=== PATIENT | male | born 1950 | race Caucasian/White ===

== ENCOUNTER 2019-11-14 10:40 | Inpatient (IN) ==
[2019-11-14 11:33] LABS: EOS# 0.03 X1000 (0.0-0.7); EOS% 0.4 % (0.0-10.0); HEMATOCRIT 34.7 % (42.0-52.0); HEMOGLOBIN 11.6 g/dL (14.0-18.0); LYMPH# 0.42 X1000 (1.2-3.4); LYMPH% 5.9 % (20.5-51.1); MCH 31.4 PG (27-31); MCHC 33.4 g/dL (33-37); MONO# 0.71 X1000 (0.11-0.59); MONO% 10.1 % (1.7-9.3); MPV 11.8 FL (7.4-10.4); NEUT% 83.6 % (42.2-75.2); PLT 219 X1000 (130-400); RBC 3.69 XMIL (4.7-6.1); RDW 13.9 % (11.5-14.5); WBC 7.06 X1000 (4.8-10.8)
[2019-11-14] MEDS ORDERED: MORPHINE IV ONE (11:38)
[2019-11-14] MEDS ORDERED: ZOFRAN IV ONE (11:38)
[2019-11-14] MEDS ORDERED: NS 1,000 ML IV ONE (11:38)
[2019-11-14 11:44] LABS: AGAP 14; ALB/GLOB RATIO 0.9; ALBUMIN 2.9 g/dL (3.5-5.0); ALKALINE PHOSPHATASE 106 U/L (32-122); BUN 25 mg/dL (8-22); CALCIUM 8.9 mg/dL (8.8-10.2); CHLORIDE 96 mmol/L (98-107); COSMO 270; CREATININE 0.8 mg/dL (0.7-1.2); ESTIMATED GFR > 60; GLUCOSE 123 mg/dL (70-104); GOT 32 U/L (10-34); GPT 89 U/L (10-44); LIPASE 167 U/L (13-60); POTASSIUM 3.8 mmol/L (3.5-5.1); SODIUM 132 mmol/L (136-145); TCO2 22 mmol/L (25-35); TOTAL BILIRUBIN 0.41 mg/dL (0.20-1.00)
--- NOTE | 2019-11-14 11:54 | Diag Imaging Result Doc PS360 ---
EXAM: CHEST-1 VIEW HISTORY: cough, on chemo TECHNIQUE: Single view COMPARISON: 10/15/2014 FINDINGS: The lungs are well expanded. The heart is not enlarged. The vessels are not distended. There are no infiltrates. No effusion identified. Right lung granuloma. IMPRESSION: No pneumonia Electronically signed by Josias Nails 11/14/2019 11:52 AM
[2019-11-14 12:28] LABS: INR 1.09; PROTIME 14.2 Seconds (11.0-16.0)
[2019-11-14 12:29] LABS: PTT 28.8 Seconds (22.3-41.8)
[2019-11-14 12:31] LABS: MAGNESIUM 2.2 mg/dL (1.5-2.7)
--- NOTE | 2019-11-14 12:39 | Diag Imaging Result Doc PS360 ---
CT ABDOMEN/PELVIS W/O CONTRAST - 11/14/2019 INDICATION: generalized abd pain/tenderness COMPARISON: 08/16/2019 FINDINGS: There are a couple of new tiny pulmonary nodules in the right lung base measuring 5 mm or less. Heart size is normal. There are numerous large masses all throughout the liver. These have dramatically increased in size and number. There is severe para-aortic retroperitoneal lymphadenopathy that has developed since the prior exam. There is trace pelvic free fluid. Urinary bladder, prostate, and rectum are normal. No bowel obstruction. No free air. There are moderate degenerative changes of the spine. No acute or suspicious bony lesion. IMPRESSION: Severe worsening metastatic cancer. This exam was performed using automated exposure control, adjustment of mA or kV according to patient size, and/or use of iterative reconstruction technique Electronically signed by Johnson Nelson 11/14/2019 12:37 PM
[2019-11-14] MEDS ORDERED: MORPHINE ONE (12:40)
--- NOTE | 2019-11-14 14:25 | PROVIDER DOCUMENTATION ---
This chart was entered by Mague Angulo Scribe, acting as scribe for Rich Samuel CRNP. HPI-General Adult - General Chief Complaint: Abdominal Pain Stated Complaint: BACK PAIN / ABDOMINAL PAIN Time Seen by Provider: 11/14/19 10:44 Source: patient, family Allergies/Adverse Reactions: Patient Allergies Allergy/AdvReac Type Severity Reaction Status Date / Time No Known Allergies Allergy Verified 10/07/19 12:55 Home Medications: Home Medication List Medication Instructions Recorded Confirmed Last Taken Type Amlodipine Besylate 10 mg PO QHS 10/15/14 11/14/19 09/10/19 21:00 History Finasteride 5 mg PO DAILY 10/15/14 11/14/19 09/10/19 08:00 History Hydrocodone/APAP 10 mg/325 mg 1 each PO Q6H PRN PRN 10/15/14 11/14/19 09/10/19 21:00 History [[place]-10] Lisinopril/Hydrochlorothiazide 1 each PO DAILY 10/15/14 11/14/19 09/11/19 07:21 History [Lisinopril-Hctz 20-25 mg Tab] Meloxicam 15 mg PO DAILY 10/15/14 11/14/19 09/10/19 08:00 History Atorvastatin Calcium 40 mg PO DAILY 10/07/19 11/14/19 Unknown History Levothyroxine [Synthroid] 100 microgm PO DAILY 10/07/19 11/14/19 Unknown History Allopurinol [Zyloprim] 300 mg PO DAILY 11/14/19 11/14/19 Unknown History Baclofen [Lioresal] 10 mg PO BID 11/14/19 11/14/19 Unknown History Dexamethasone 4 mg PO DIRECTED 11/14/19 11/14/19 Unknown History Fentanyl 1 ea TD Q72H 11/14/19 11/14/19 Unknown History Omeprazole 40 mg PO DAILY 11/14/19 11/14/19 Unknown History Ondansetron [Zofran] 8 mg PO Q6-8H PRN PRN 11/14/19 11/14/19 Unknown History Tamsulosin [Flomax] 0.4 mg PO DAILY 11/14/19 11/14/19 Unknown History Trazodone HCl 50 mg PO QHS 11/14/19 11/14/19 Unknown History Venlafaxine HCl [Venlafaxine HCl 75 mg PO DAILY 11/14/19 11/14/19 Unknown History ER] - History of Present Illness -Gen Adult Nature of Presenting Problems: 69 yowm presents to the ed via ems with c/o generalized weakness, unable to ambulate, productive cough and chronic abd pain. pt sts last BM was 3 days prior. pt is currently on chemo for pancreatic and liver cancer. Also c/o a productive cough. States his abdominal pain has not worsened lately, but generalized pain "was so bad I couldn't sleep last night". Uses Fentanyl patch for pain currently. Denies fever or any other complaints. Location of Pain/Injury: reports: generalized (weakness) Quality of Pain: reports: other (weakness) Severity: reports: moderate Onset/Duration: reports: last night Timing: reports: still present, constant Context/Activities at Onset: reports: light activity Modifying Factors: improves with: nothing Associated Symptoms: reports: cough, malaise, weakness, trouble walking. denies: back/neck pain, chest pain, shortness of breath Similar Symptoms Previously?: No Recently seen or treated by another doctor?: Yes (oncology) Review of Systems - Adult - REVIEW OF SYSTEMS - ADULT Constitutional: denies: chills, fever Eyes: reports: no symptoms reported Ears, Nose, Mouth & Throat: reports: no symptoms reported Cardiovascular: reports: no symptoms reported. denies: chest pain, palpitations Respiratory: reports: see HPI, cough. denies: shortness of breath Gastrointestinal: reports: see HPI, abdominal pain (chronic). denies: diarrhea, nausea, vomiting Genitourinary: reports: no symptoms reported Musculoskeletal: reports: see HPI, muscle weakness. denies: neck pain Integumentary: reports: no symptoms reported Neurological: reports: no symptoms reported. denies: dizziness/vertigo, headache/migraines Psychiatric: reports: no symptoms reported Endocrine: reports: no symptoms reported Hematologic/Lymphatic: reports: no symptoms reported Allergic/Immunologic: reports: no symptoms reported All Other Systems: Reviewed and Negative Past History - Adult - PAST MEDICAL HISTORY-ADULT Review of Records: reports: Old Records Reviewed, Nursing Assessment Review, Medications Reviewed, Social history reviewed & non-contributory. Major Childhood Illnesses: reports: denies history Cardiovascular: reports: CAD, HTN, hyperlipidemia Gastrointestinal: reports: cancer, GERD Genitourinary: reports: denies history Musculoskeletal: reports: cancer (bone lesion) Neurological: reports: Seizures/Epilepsy Psychiatric: reports: denies history Endocrine/Immune: reports: immunosuppression Other Conditions: reports: denies history - PRIOR SURGERIES/PROCEDURES Surgical/Procedure History: reports: appendectomy, cardiac stent, other (cataract, hydrocele) - IMMUNIZATION STATUS Childhood Immunizations: See Nurse Assessment Flu Vaccine: See Nurse Assessment - FAMILY HISTORY Family History: reviewed, not pertinent - SOCIAL HISTORY Smoking: quit greater than 1 year Substance Use: denies Living Situation: family Physical Exam-General - PHYSICAL EXAM-ADULT Initial Vital Signs Reviewed: Yes - CONSTITUTIONAL General Appearance: alert, no apparent distress. negative: appears well, lethargic - EYES Eyes: PERRL/EOMI, pink conjunctivae - HEAD, EARS, NOSE, MOUTH & THROAT HENMT: normocephalic/atraumatic, moist mucous membranes - NECK Neck: non-tender, full range of motion, supple, normal inspection - RESPIRATORY Respiratory: no pleuratic chest pain, no respiratory distress, no accessory muscle use, rhonchi (bilateral) - CARDIOVASCULAR Cardiovascular: normal peripheral pulses, regular rate, rhythm, no gallop, no murmur - CHEST (BREASTS) Chest/Breast: deferred - GASTROINTESTINAL (ABDOMEN) Abdominal Exam: normal bowel sounds, soft, tenderness (mild diffuse). negative: distended, guarding, rigid, rebound - GENITOURINARY Male Genitalia: deferred Rectal Exam: deferred Hemoccult Exam: deferred - MUSCULOSKELETAL Back Exam: normal inspection, no CVA tenderness, no vertebral tenderness Extremity: normal inspection. negative: normal gait - SKIN Integumentary: normal color, warm/dry. negative: cyanosis, diaphoresis, jaundice, mottled, pallor - NEUROLOGIC Neurologic: grossly normal, no motor/sensory deficits - PSYCHIATRIC Psych/Mental Status: normal mood/affect, normal thought content, normal thought process, oriented x 3 Progress - PLAN OF CARE/RESULTS Progress/Plan/Lab Results: Vital Signs - 8 hr 11/14/19 10:48 Temperature 98.9 F Pulse Rate 70 Respiratory Rate 16 Blood Pressure 124/83 O2 Sat by Pulse Oximetry 99 Laboratory Results - last 24 hr 11/14/19 11:03 WBC 7.06 RBC 3.69 L Hgb 11.6 L Hct 34.7 L MCV 94.0 MCH 31.4 H MCHC 33.4 RDW Std Deviation 13.9 Plt Count 219 MPV 11.8 H Neut % (Auto) 83.6 H Lymph % (Auto) 5.9 L [place] % (Auto) 10.1 H Eos % (Auto) 0.4 Baso % (Auto) 0.0 Neut # (Auto) 5.90 Lymph # (Auto) 0.42 L [place] # (Auto) 0.71 H Eos # (Auto) 0.03 Baso # (Auto) 0.00 Orders Category Date Time Status NPO Diet 11/14/19 11:05 Active CBC WITH DIFF [HEME] Stat Lab 11/14/19 11:03 Completed COMPREHENSIVE METABOLIC PANEL [CHEM] Stat Lab 11/14/19 11:03 Received LIPASE [CHEM] Stat Lab 11/14/19 11:03 Received Abd Pain/OB <20 weeks Stat Oth 11/14/19 11:04 Ordered Result Diagrams: 11/14/19 11:03 11/14/19 11:03 - REASSESSMENT Reassessment #1 Time Reassessed: 14:25 Status: other (Pt refused blood cultures and lactate. Agrees to admission plan. States pain improved with morphine.) - XRAY 1 XRAY: Bilateral XRAY Study: Chest Impression: See EMR Report (EXAM: CHEST-1 VIEW HISTORY: cough, on chemo TECHNIQUE: Single view COMPARISON: 10/15/2014 FINDINGS: The lungs are well expanded. The heart is not enlarged. The vessels are not distended. There are no infiltrates. No effusion identified. Right lung granuloma. IMPRESSION: No pneumonia Electronically signed by Josias Nails 11/14/2019 11:52 AM 11/14/19 1152 Interpreting Physician: Josias Nails MD Dictated Date/Time: 11/14/19 1152 cc: Rich Samuel; Damon Yanes) - CT/MRI 1 CT Study: Abdomen, Pelvis Impression: See EMR Report (CT ABDOMEN/PELVIS W/O CONTRAST - 11/14/2019 INDICATION: generalized abd pain/tenderness COMPARISON: 08/16/2019 FINDINGS: There are a couple of new tiny pulmonary nodules in the right lung base measuri ng 5 mm or less. Heart size is normal. There are numerous large masses all throughout the liver. These have dramatically increased in size and number. There is severe para-aortic retroperitoneal lymphadenopathy that has developed since the prior exam. There is trace pelvic free fluid. Urinary bladder, prostate, and rectum are normal. No bowel obstruction. No free air. There are moderate degenerative changes of the spine. No acute or suspicious bony lesion. IMPRESSION: Severe worsening metastatic cancer. This exam was performed using automated exposure control, adjustment of mA or kV according to patient size, and/or use of iterative reconstruction technique Electronically signed by Johnson Nelson 11/14/2019 12:37 PM 11/14/19 1237 Interpreting Physician: Johnson Nelson MD Dictated Date/Time: 11/14/19 1232 cc: Rich Samuel; Damon Yanes) - CONSULTS/PCP/HOSPITALIST Notification #1 *Consult/PCP/Hospitalist*: JAYLAN Isaac APPLICATIONS SUPPORT ENGINEER Time Discussed: 14:11 Reason/Comments: admission- weakness, pain, hx metastatic ca Consult Disposition: Admit Departure - Departure Date of Disposition Decision: 11/14/19 Time of Disposition Decision: 14:22 DIAGNOSIS: Liver cancer, primary, with metastasis from liver to other site, Weakness Disposition: ADMITTED INPATIENT 09 Certified Medical Emergency: Emergent Condition: Stable Referrals and Follow-Ups: Damon Yanes [Primary Care Provider] - - Critical Care Note This patient required my direct & personal management of CC.: No Attestation - Physician/ AMARILYS Attestation Patient care was provided by Advanced Practice Provider:: Yes Advanced Practice Provider documentation review:: The Mid-level provider documentation, treatment plan and medical decision making was reviewed by the physician who agrees with all treatment and medical decision making by the MLP. The physician spent face to face time with patient:: No Advanced Practice Provider documentation review:: Supervising physician onsite and consulted in the evaluation and care of this patient. The physician did not have a face to face encounter with the patient. This chart was documented by the indicated scribe, (Mague Angulo Scribe) and accurately reflects the services I performed and decisions made by me, Rich Samuel CRNP, as attested by the provider's signature.
[2019-11-14] MEDS ORDERED: DECADRON PO SCH (14:46)
[2019-11-14] MEDS ORDERED: ZOFRAN IV PRN (14:46)
[2019-11-14] MEDS ORDERED: DURAGESIC 25 MICROGM/HR PATCH TD SCH (14:46)
[2019-11-14] MEDS ORDERED: TYLENOL PO PRN (14:46)
[2019-11-14] MEDS ORDERED: DILAUDID IV PRN (14:47)
--- NOTE | 2019-11-14 15:53 | EKG Report ---
Test Performed on : 11/14/2019 3:43:26 PM Test Reason : abd pain Blood Pressure : / mmHG Vent. Rate : 059 BPM Atrial Rate : 059 BPM P-R Int : 148 ms QRS Dur : 086 ms QT Int : 430 ms P-R-T Axes : 071 007 051 degrees QTc Int : 425 ms Sinus bradycardia. Otherwise normal ECG When compared with ECG of 07-OCT-2019 11:05, (Unconfirmed) No significant change was found Unconfirmed Result
[2019-11-14 16:47] LABS: URINE SOURCE CLEAN CATCH
[2019-11-14 16:54] LABS: BILIRUBIN URINE NEGATIVE (NEGATIVE); BLOOD URINE NEGATIVE (NEGATIVE); COLOR YELLOW; GLUCOSE URINE NEGATIVE (NEGATIVE); KETONE URINE TRACE mg/dL (NEGATIVE); LEUKOCYTES URINE NEGATIVE (NEGATIVE); NITRITE URINE NEGATIVE (NEGATIVE); PROTEIN URINE TRACE mg/dL (NEGATIVE); SP GRAVITY URINE 1.024; TURBIDITY URINE CLEAR (CLEAR); UROBILINOGEN URINE NORMAL (NORMAL)
[2019-11-14 16:55] LABS: UR EPITHELIAL CELLS <10 /HPF (<10); URINE BACTERIA NEGATIVE /HPF; URINE RBC <10 /HPF (<10); URINE WBC <10 /HPF (<10)
--- NOTE | 2019-11-14 17:12 | HISTORY AND PHYSICAL ---
PRIMARY CARE PROVIDER: Florencio Rob. PRIMARY ONCOLOGIST: Dr. Francois. CHIEF COMPLAINT: Worsening weakness with abdominal pain and nausea. HISTORY OF PRESENT ILLNESS: Mr. Romeo Pan Is a 69-year-old male with a medical history of gastroesophageal reflux disease, arthritis, cardiac disease with history of stents, who also has a history of epiglottitis and lymph node involvement cancer where he had to have 19 radiation treatments in also most recently pancreatic and liver cancer and metastasis to the right hip area with lymph node involvement as well, and he has had 2 chemo treatments followed by Dr. Francois. So far he has had some worsening of the cancer per imaging. He is here with complaints of weaknesses that has just progressively gotten worse and also right upper quadrant abdominal pain with nausea. He has not been vomiting, but the pain is severe and he has had significant decrease in appetite. Since he has been here we have given him some more pain medication for better pain control and started him on a clear liquid diet, which family at bedside states that this is the most he has had p.o. intake johnson in a while. Otherwise, other lab work and imaging is not much different. He just has worsening of the cancer. PAST MEDICAL HISTORY: 1. GERD. 2. Hypertension. 3. Hyperlipidemia. 4. Arthritis. 5. Coronary artery disease with history of [place] and stents. 6. Pancreatic liver cancer with metastasis that I believe in also in the left hip. 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 His last chemotherapy treatment was last Monday. 8. Benign prostatic hypertrophy. 9. Chronic pain. SURGICAL HISTORY: 1. Appendectomy. 2. Right hydrocele. 3. Right spermatocele. 4. Left inguinal hernia repair. 5. Left arm and elbow area. 6. Epiglottis and lymph node removal. SOCIAL HISTORY: Smokes 2 packs per day. Started around the age of 13. Occasionally smokes marijuana. He used to drink a moderate amount of alcohol on daily basis, but he does not drink now. No other illicit drug use. Lives with his . FAMILY HISTORY: Mother and father both had heart disease. ALLERGIES: No known drug allergies. HOME MEDICATIONS: 1. Amlodipine besylate 10 mg p.o. nightly. 2. Trazodone 50 mg p.o. nightly. 3. Atorvastatin 40 mg p.o. daily. 4. Dexamethasone 4 mg as directed. 5. Fentanyl patch every 72 hours. 6. Finasteride 5 mg p.o. daily. 7. Flomax 0.4 mg p.o. daily. 8. Baclofen 10 mg p.o. twice daily. 9. Lisinopril-hydrochlorothiazide 20 - 25 1 tablet p.o. daily. 10. Mobic 15 mg p.o. daily. 11. [place] 10 1 tablet p.o. every 6 hours p.r.n. 12. Omeprazole 40 mg p.o. daily. 13. Synthroid 100 mcg p.o. daily. 14. Venlafaxine 75 mg p.o. daily. 15. Zofran 8 mg p.o. every 6 to 8 hours p.r.n. 16. Allopurinol 300 mg p.o. daily. REVIEW OF SYSTEMS: Fourteen point review of systems are complete and all were negative except for those mentioned above HPI. PHYSICAL EXAMINATION: VITAL SIGNS: Temperature 98.6 degrees, heart rate 62, respiratory rate 16, blood pressure 120/50, O2 saturation 99% on room air. GENERAL: Mr. Romeo Pan is a 69-year-old male. He is in no acute no acute distress. He is able to answer questions appropriately. HEENT: Atraumatic, normocephalic. Pupils equal, round, reactive to light. Extraocular movements intact. Mucous membranes are dry. NECK: Trachea midline. CARDIOVASCULAR: S1, S2. Regular rate and rhythm. No rubs, gallops, murmurs. No lower extremity edema. +2 dorsalis and radial pulses. Negative JVD or carotid bruits. PULMONARY: Clear to auscultate bilateral breath sounds. No accessory muscle use or work of breathing noted GI: Soft, tender in the right upper quadrant. Hypoactive bowel sounds. EXTREMITIES: Moves all extremities equally. Full range of motion. NEUROLOGIC: A and O x3. Follows commands. Sensory is intact. SKIN: Warm, dry, intact. LABORATORY DATA: White blood cells 7000, hemoglobin 11, hematocrit 34, platelet count 219,000. INR is 1.09, PTT is 28.8. Sodium 132, potassium 3.8, BUN 25, creatinine 0.8, glucose 123, calcium 8.9, magnesium 2.2, bilirubin 0.41, AST 32, ALT 89. CK 57, troponin 16. Albumin is 2.9. Lipase 167. IMAGING: Chest x-ray: No pneumonia. Abdominal pelvic CT: Severe worsening metastatic cancer. EKG sinus bradycardia, rate 59. QTc is 425. ASSESSMENT/PLAN: 1. Pancreatic and liver cancer with worsening metastasis followed by Dr. Francois-we will consult him. Most likely the worsening of this metastasis has increased his pain. 2. Acute on chronic pain secondary to cancer. We will continue his home regimen of fentanyl and [place], but we will go ahead and add some extra doses of Dilaudid to assist with his pain control. 3. Increased weakness. We will order physical therapy. Advance his diet. He is currently on a clear liquid diet. He has some malnutrition going on. 4. Protein calorie malnutrition. Again just started him on a clear liquid diet. Apparently, he has not had very much of an appetite and has not been eating well. 5. Gastroesophageal reflux disease. 6. Hypertension. He is on amlodipine. 7. Hypothyroidism. Continue Synthroid. 8. Benign prostatic hypertrophy. Continue Flomax. 9. Hyperlipidemia. Continue statin. 10. Deep venous thrombosis prophylaxis, sequential compression devices. Dictated by LATONYA Lee for Nathanael Crews MD cc: LATONYA Lee MD I agree with most components of history, physical, assessment and plan. A separate addendum has been dictated. [facility]
--- NOTE | 2019-11-14 17:28 | HISTORY AND PHYSICAL ---
HISTORY OF PRESENT ILLNESS: Mr. Pan is a 69 year-old man with past medical history of pancreatic cancer as per ED record reports with liver metastases, active tobacco abuse, COPD, coronary artery disease status post percutaneous intervention, latest being in 2013, hyperlipidemia, benign prostatic hypertrophy, anxiety, who comes in with chief complaints of gradually progressive abdominal pain over the past several days at least up to 7 days. History was limited as the patient has significant hearing impairment. And no family member is currently available. I received more history from the emergency room records. There is no previous documentation. According to in the ER record, patient has pancreatic cancer with liver metastasis. SUBJECTIVE: Mr. Pan states he is intermittently having abdominal pain. He has not had a bowel movements for 3 days. He states he is occasionally coughing with expectoration, but it is not out of proportion to his usual. He continues to smoke 1 to 2 packs per day. VITALS: Temperature 98.6 degrees, pulse 60, respiratory rate 16, blood pressure 120/50, saturating 98% room air. PHYSICAL EXAMINATION: Not in acute distress. Oral cavity is moist. LUNGS: Air entry bilaterally equal. No wheeze, rhonchi, or crackles. CARDIOVASCULAR: S1, S2 normal. No murmur or gallop. ABDOMEN: Soft. There is mild generalized tenderness. Active bowel sounds. EXTREMITY: No lower extremity edema. NEUROLOGICAL: He is alert oriented x3. He does have significant hearing impairment. LABS: Suggestive of normocytic anemia with hemoglobin 11.6, platelet 219,000. Sodium of 132, chloride 96, BUN 25, creatinine 0.8. He does have hypoalbuminemia. Microbiology no data. IMAGING: Abdomen and pelvis CT had worsening of metastatic cancer with significant periaortic lymphadenopathy and liver metastasis. Electrocardiogram had normal sinus rhythm. ASSESSMENT AND PLAN: 1. Failure to thrive with worsening abdominal pain. This is likely in the setting of worsening hepatic metastasis. He does have a GI malignancy with diffuse hepatic metastasis, which according to CT report has been worsening. He also has significant periaortic lymphadenopathy and I think that is worse and his malignancy is contributing to his worsening abdominal pain. I will start him on intravenous hydromorphone once home medications are reconciled. I will start him on long-standing opioid, such as fentanyl patch or extended-release morphine once reconciled. I will also keep him on bisacodyl suppositories to avoid constipation. 2. Hyponatremia. 3. Hypochloremia. 4. Mild kidney dysfunction with elevated BUN and hypoalbuminemia. This is likely related to poor oral intake and intravascular volume depletion. I will start him on intravenous fluid resuscitation and follow up with electrolytes tomorrow. I will keep him on Ensure supplements and mechanical soft diet. 5. Others. Continue home amlodipine, atorvastatin for history of essential hypertension, hyperlipidemia; trazodone for insomnia; baclofen for muscle spasm; finasteride and tamsulosin for benign prostatic hypertrophy. DISPOSITION: I will monitor patient inside the hospital. I will consult Oncology. Plan of care discussed with the patient. His questions have been answered. I will update family members as they come to the hospital. cc: MD ALEXUS Ortega
[2019-11-14] MEDS: DULCOLAX PR SCH (21:06)
[2019-11-14] MEDS: DESYREL PO SCH (21:06)
[2019-11-14] MEDS: NORVASC PO SCH (21:06)
[2019-11-14] MEDS: LIORESAL PO SCH (21:06)
[2019-11-14] MEDS: NORCO-10 PO PRN (23:55)
[2019-11-15] MEDS ORDERED: ATIVAN IV ONE (01:03)
[2019-11-15] MEDS: SYNTHROID PO SCH (06:46)
[2019-11-15] MEDS: PRILOSEC PO SCH (06:46)
[2019-11-15 08:06] LABS: EOS# 0.05 X1000 (0.0-0.7); EOS% 0.9 % (0.0-10.0); HEMATOCRIT 28.2 % (42.0-52.0); HEMOGLOBIN 9.3 g/dL (14.0-18.0); IMM GRAN# 0.04 X1000 (0.0-0.04); IMM GRAN% 0.7 % (0.0-0.5); LYMPH# 0.71 X1000 (1.2-3.4); LYMPH% 12.8 % (20.5-51.1); MCH 30.8 PG (27-31); MCV 93.4 FL (81-99); MONO# 0.65 X1000 (0.11-0.59); MONO% 11.7 % (1.7-9.3); MPV 11.7 FL (7.4-10.4); NEUT% 73.9 % (42.2-75.2); PLT 155 X1000 (130-400); RBC 3.02 XMIL (4.7-6.1); RDW 13.3 % (11.5-14.5); WBC 5.55 X1000 (4.8-10.8)
[2019-11-15 08:29] LABS: AGAP 10; ALB/GLOB RATIO 1.4; ALBUMIN 2.7 g/dL (3.5-5.0); ALKALINE PHOSPHATASE 97 U/L (32-122); BUN 16 mg/dL (8-22); CALCIUM 8.2 mg/dL (8.8-10.2); CHLORIDE 102 mmol/L (98-107); COSMO 271; CREATININE 0.9 mg/dL (0.7-1.2); ESTIMATED GFR > 60; GLUCOSE 90 mg/dL (70-104); GOT 32 U/L (10-34); GPT 75 U/L (10-44); MAGNESIUM 2.3 mg/dL (1.5-2.7); POTASSIUM 3.8 mmol/L (3.5-5.1); SODIUM 135 mmol/L (136-145); TCO2 23 mmol/L (25-35); TOTAL BILIRUBIN 0.27 mg/dL (0.20-1.00); TOTAL PROTEIN 4.6 g/dL (6.3-8.3)
[2019-11-15] MEDS ORDERED: PRINZIDE 10/12.5MG PO SCH (09:00)
[2019-11-15] MEDS: EFFEXOR XR PO SCH (09:19)
[2019-11-15] MEDS: PROSCAR PO SCH (09:19)
[2019-11-15] MEDS: FLOMAX PO SCH (09:20)
[2019-11-15] MEDS: ZYLOPRIM PO SCH (09:20)
[2019-11-15] MEDS: DECADRON PO SCH (09:20)
[2019-11-15] MEDS: MOBIC PO SCH (09:20)
[2019-11-15] MEDS: LIORESAL PO SCH ×2 (09:20→20:13)
[2019-11-15] MEDS: DULCOLAX PR SCH (09:26)
[2019-11-15 10:20] LABS: URINE SOURCE CLEAN CATCH
[2019-11-15 10:30] LABS: BILIRUBIN URINE NEGATIVE (NEGATIVE); BLOOD URINE NEGATIVE (NEGATIVE); COLOR YELLOW; GLUCOSE URINE NEGATIVE (NEGATIVE); KETONE URINE TRACE mg/dL (NEGATIVE); LEUKOCYTES URINE NEGATIVE (NEGATIVE); NITRITE URINE NEGATIVE (NEGATIVE); PH URINE 5.5; PROTEIN URINE NEGATIVE (NEGATIVE); SP GRAVITY URINE 1.023; TURBIDITY URINE CLEAR (CLEAR); UROBILINOGEN URINE NORMAL (NORMAL)
[2019-11-15 10:32] LABS: UR EPITHELIAL CELLS <10 /HPF (<10); URINE BACTERIA NEGATIVE /HPF; URINE RBC <10 /HPF (<10); URINE WBC <10 /HPF (<10)
[2019-11-15] MEDS ORDERED: NICODERM PATCH TD PRN (14:25)
[2019-11-15] MEDS ORDERED: DURAGESIC 12 MICROGM/HR PATCH TD SCH (14:30)
[2019-11-15] MEDS: CLINIMIX E 4.25%-5% SOLUTION 1,000 ML IV SCH (15:09)
[2019-11-15] MEDS ORDERED: NS 1,000 ML IV SCH (15:30)
[2019-11-15] MEDS: MIRALAX PO SCH (15:32)
[2019-11-15] MEDS: TYLENOL PO SCH (15:41)
--- NOTE | 2019-11-15 16:20 | PROGRESS NOTE ---
DATE: 11/15/2019 INTERVAL HISTORY: No acute event overnight. The patient's sister is at bedside. Apparently, patient was able to eat better than he has been since last few days. He was feeling slightly stronger. We discussed about starting him on a bowel regimen. Oncology team has started him on intravenous Clinimix. VITALS: Temperature of 98 degrees, pulse 56, respiratory rate 16, blood pressure 100/42. PHYSICAL EXAMINATION: Mr. Pan is not in acute distress. HEENT: Oral cavity is moist.Lungs: Air entry bilaterally equal. No wheeze, rhonchi, crackles. Cardiovascular: S1, S2 normal. No murmur, rub, or gallop. Abdomen: Soft mildly tender, generalized, not significantly tender. Active bowel sounds. Extremity: No lower extremity edema. NEUROLOGICAL: He is alert and oriented x3. LABS: Suggestive of hemoglobin of 9.2, Sodium 135, carbon dioxide is 23, BUN 16, creatinine 0.9. Microbiology no data. IMAGING: No new data. ASSESSMENT AND PLAN: 1. Failure to thrive with worsening abdominal pain likely in the setting of worsening hepatic metastasis. He does have history of GI malignancy with diffuse hepatic metastasis. I am awaiting further oncology recommendation to know the nature of his cancer. According to family, he had pancreatic and liver cancer as well as some right hip metastasis. 2. Hyponatremia, hypochloremia likely because of poor oral intake, improving. I will consider additional intravenous fluid resuscitation. 3. Mild kidney dysfunction with elevated BUN, improving. Follow up BMP as needed. 4. Hypoalbuminemia, likely because of poor nutritional status. I am encouraging him to have oral intake. I am giving him Ensure as well as he is getting intravenous nutrition. 5. Metastatic GI malignancy and chronic abdominal pain and acute on chronic pain due to worsening metastasis. Start patient on fentanyl patch, intravenous hydromorphone as needed and I will keep his acetaminophen scheduled. He is also on baclofen as needed for muscle spasm. I will keep him on bowel regimen to avoid constipation. 6. Active tobacco abuse. Start patient on nicotine patch as needed. DISPOSITION: Will monitor patient inside the hospital. Continue physical therapy. Based on his course, I will anticipate discharge in next 24 to 48 hours if his pain is better controlled. Plan of care discussed with the patient and his sister at bedside. Their questions have been answered. cc: Nathanael Crews MD [facility]
[2019-11-15] MEDS: LIPITOR PO SCH (20:13)
[2019-11-15] MEDS: NORVASC PO SCH (20:13)
[2019-11-15] MEDS: DESYREL PO SCH (20:13)
[2019-11-16] MEDS: MIRALAX PO SCH ×3 (02:01→21:23)
[2019-11-16] MEDS: DULCOLAX PR SCH ×3 (02:02→21:33)
[2019-11-16] MEDS: SYNTHROID PO SCH (07:05)
[2019-11-16] MEDS: PRILOSEC PO SCH (07:05)
[2019-11-16] MEDS: TYLENOL PO SCH ×3 (07:05→21:23)
[2019-11-16 07:46] LABS: HEMATOCRIT 30.1 % (42.0-52.0); HEMOGLOBIN 10.1 g/dL (14.0-18.0); IMM GRAN# 0.05 X1000 (0.0-0.04); IMM GRAN% 0.6 % (0.0-0.5); LYMPH# 0.55 X1000 (1.2-3.4); LYMPH% 6.2 % (20.5-51.1); MCH 30.9 PG (27-31); MCHC 33.6 g/dL (33-37); MONO# 0.71 X1000 (0.11-0.59); MPV 11.6 FL (7.4-10.4); NEUT# 7.55 X1000 (1.4-6.5); NEUT% 85.2 % (42.2-75.2); PLT 149 X1000 (130-400); RBC 3.27 XMIL (4.7-6.1); RDW 13.1 % (11.5-14.5); WBC 8.86 X1000 (4.8-10.8)
[2019-11-16 08:17] LABS: LYMPHS 10 % (21-51); MONO 5 % (1-9); SEGS 85 % (42-75)
[2019-11-16 08:18] LABS: ANISOCYTOSIS 1+
[2019-11-16 08:56] LABS: AGAP 10; ALB/GLOB RATIO 1.2; ALBUMIN 2.9 g/dL (3.5-5.0); ALKALINE PHOSPHATASE 121 U/L (32-122); BUN 23 mg/dL (8-22); CALCIUM 8.8 mg/dL (8.8-10.2); CHLORIDE 102 mmol/L (98-107); COSMO 275; CREATININE 0.9 mg/dL (0.7-1.2); ESTIMATED GFR > 60; GLUCOSE 149 mg/dL (70-104); GOT 29 U/L (10-34); GPT 72 U/L (10-44); MAGNESIUM 2.1 mg/dL (1.5-2.7); POTASSIUM 4.4 mmol/L (3.5-5.1); SODIUM 134 mmol/L (136-145); TCO2 22 mmol/L (25-35); TOTAL BILIRUBIN 0.19 mg/dL (0.20-1.00); TOTAL PROTEIN 5.4 g/dL (6.3-8.3)
[2019-11-16] MEDS: DECADRON PO SCH (09:31)
[2019-11-16] MEDS: EFFEXOR XR PO SCH (09:31)
[2019-11-16] MEDS: LIORESAL PO SCH ×2 (09:31→21:23)
[2019-11-16] MEDS: PROSCAR PO SCH (09:32)
[2019-11-16] MEDS: MOBIC PO SCH (09:32)
[2019-11-16] MEDS: FLOMAX PO SCH (09:32)
[2019-11-16] MEDS: ZYLOPRIM PO SCH (09:32)
--- NOTE | 2019-11-16 12:33 | PROGRESS NOTE ---
DATE: 11/16/2019 INTERVAL HISTORY: No acute events overnight. SUBJECTIVE: Mr. Pan is feeling better. Denies any chest pain, shortness of breath. He only has occasional cough, likely related to his long-standing smoking. Denies nausea, vomiting, or abdominal pain. He states that he had 2 bowel movements yesterday. We discussed about giving intravenous nutrition for another 24 hours and planning discharge tomorrow. His daughter is at bedside. VITALS: Temperature 98 degrees, pulse 55, respiratory 16, blood pressure 117/49, saturating 96% on room air. PHYSICAL EXAMINATION: General: Not in acute distress. Mouth: Oral cavity is moist. Lungs: Air entry bilaterally equal. No wheeze, rhonchi, or crackles. Cardiovascular: S1, S2 normal. No murmur, rub, or gallop. Abdomen: Soft, nontender. Active bowel sounds. Extremities: No lower extremity edema. Neurologic: He is alert and oriented x3. LABS: Suggestive of hemoglobin of 10.1, WBC 8.8, platelet 149. Sodium 134, BUN 23, creatinine 0.9, blood glucose 149. MICROBIOLOGY/IMAGING: No microbiological or imaging new data. ASSESSMENT AND PLAN: 1. Failure to thrive and weakness with acute on chronic abdominal pain due to worsening hepatic metastasis and retroperitoneal lymphadenopathy. He is status post intravenous fluid resuscitation. Continue intravenous Clinimix for another 24 hours. Continue intravenous hydromorphone as needed. I resumed his home fentanyl patch and [place]. I will keep him on bisacodyl suppositories and MiraLAX to avoid constipation. 2. Hyponatremia, hypochloremia because of poor oral intake, now improving. His mild kidney dysfunction suggestive of elevated BUN also improved to some extent. 3. Hypoalbuminemia, now improving after intravenous Clinimix. 4. Metastatic pancreatic cancer with liver metastasis. Oncology on board. 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 5. Other. Continue home amlodipine for hypertension, trazodone for insomnia, allopurinol for gout, atorvastatin for hyperlipidemia, baclofen for muscle spasm, dexamethasone for appetite stimulation, levothyroxine for hypothyroidism. DISPOSITION: The patient has been working with physical therapy. If he continues to do better, my plan is to discharge him tomorrow after another 24 hours of intravenous Clinimix. I discussed this plan with the patient and her sister at bedside. They are in agreement. All of their questions have been answered. cc: Nathanael Crews MD MTDD
[2019-11-16] MEDS: CLINIMIX E 4.25%-5% SOLUTION 1,000 ML IV SCH (17:04)
[2019-11-16] MEDS: NORVASC PO SCH (21:23)
[2019-11-16] MEDS: LIPITOR PO SCH (21:23)
[2019-11-16] MEDS: DESYREL PO SCH (21:23)
[2019-11-17] MEDS: SYNTHROID PO SCH ×2 (05:42→06:45)
[2019-11-17] MEDS: TYLENOL PO SCH ×2 (05:42→12:51)
[2019-11-17] MEDS: PRILOSEC PO SCH ×2 (05:42→06:45)
[2019-11-17] MEDS: NORCO-10 PO PRN (05:42)
[2019-11-17 08:07] VITALS: BP 117/59
[2019-11-17 09:02] LABS: BASO# 0.01 X1000 (0.0-0.2); BASO% 0.1 % (0.0-0.8); HEMATOCRIT 28.6 % (42.0-52.0); HEMOGLOBIN 9.6 g/dL (14.0-18.0); IMM GRAN# 0.09 X1000 (0.0-0.04); IMM GRAN% 0.7 % (0.0-0.5); LYMPH# 0.61 X1000 (1.2-3.4); LYMPH% 4.7 % (20.5-51.1); MCHC 33.6 g/dL (33-37); MCV 92.3 FL (81-99); MONO# 1.01 X1000 (0.11-0.59); MONO% 7.8 % (1.7-9.3); MPV 11.6 FL (7.4-10.4); NEUT# 11.19 X1000 (1.4-6.5); NEUT% 86.7 % (42.2-75.2); PLT 146 X1000 (130-400); RDW 13.2 % (11.5-14.5); WBC 12.91 X1000 (4.8-10.8)
[2019-11-17 09:16] LABS: AGAP 11; ALB/GLOB RATIO 1.2; ALBUMIN 2.8 g/dL (3.5-5.0); ALKALINE PHOSPHATASE 128 U/L (32-122); BUN 24 mg/dL (8-22); CALCIUM 8.7 mg/dL (8.8-10.2); CHLORIDE 105 mmol/L (98-107); COSMO 281; CREATININE 0.8 mg/dL (0.7-1.2); ESTIMATED GFR > 60; GLUCOSE 130 mg/dL (70-104); GOT 36 U/L (10-34); GPT 80 U/L (10-44); POTASSIUM 4.2 mmol/L (3.5-5.1); SODIUM 138 mmol/L (136-145); TCO2 22 mmol/L (25-35); TOTAL BILIRUBIN 0.21 mg/dL (0.20-1.00); TOTAL PROTEIN 5.1 g/dL (6.3-8.3)
[2019-11-17 10:02] LABS: LYMPHS 4 % (21-51); MONO 8 % (1-9); SEGS 88 % (42-75)
[2019-11-17] MEDS: DECADRON PO SCH (10:21)
[2019-11-17] MEDS: MOBIC PO SCH (10:21)
[2019-11-17] MEDS: ZYLOPRIM PO SCH (10:22)
[2019-11-17] MEDS: EFFEXOR XR PO SCH (10:22)
[2019-11-17] MEDS: PROSCAR PO SCH (10:22)
[2019-11-17] MEDS: FLOMAX PO SCH (10:22)
[2019-11-17] MEDS: LIORESAL PO SCH (10:22)
[2019-11-17] MEDS: MIRALAX PO SCH (10:23)
[2019-11-17] MEDS: DULCOLAX PR SCH (10:23)
--- NOTE | 2019-11-20 08:18 | DISCHARGE SUMMARY ---
ADMISSION DATE: 11/14/2019 DISCHARGE DATE: 11/17/2019 DISCHARGE DISPOSITION: Home with family. DISCHARGE CONDITION: Hemodynamically stable. The patient denies any nausea, vomiting, abdominal pain. He has had adequate bowel movements. His oral intake has improved. He was able to perform physical activity with minimal help. DISCHARGE DIAGNOSES: 1. Failure to thrive. 2. Weakness. 3. Acute on chronic abdominal pain. 4. Metastatic pancreatic cancer with worsening retroperitoneal lymphadenopathy and worsening hepatic metastasis. 5. Hyponatremia, hypochloremia due to poor oral intake. 6. Hypoalbuminemia due to protein energy malnutrition. OTHER DIAGNOSES: 1. History of metastatic pancreatic cancer with liver metastasis. 2. Essential hypertension. 3. Insomnia. 4. Gout. 5. Hyperlipidemia. 6. Hypothyroidism. DISCHARGE MEDICATIONS: 1. Amlodipine 10 mg at nighttime. 2. Trazodone 50 mg at nighttime. 3. Atorvastatin 40 mg daily. 4. Dexamethasone 4 mg as directed. 5. Fentanyl patch 1 patch every 72 hours. 6. Finasteride 5 mg daily. 7. Tamsulosin 0.4 mg daily. 8. Baclofen 10 mg b.i.d. 9. Meloxicam 15 mg daily. 10. [place] 10 one tablet every 6 hours as needed for pain. 11. Omeprazole 40 mg daily. 12. Levothyroxine 100 mcg daily. 13. Venlafaxine 75 mg daily. 14. Zofran 8 mg every 6 to 8 hours as needed for nausea and vomiting. 15. Allopurinol 300 mg daily. 16. Dulcolax 10 mg per rectal b.i.d. as needed for constipation. 17. MiraLAX 17 g daily. 18. Nicotine patch 21 mg daily, 21 patches have been prescribed. DISCHARGE VITAL SIGNS: Temperature of 98.2 degrees, pulse 54, respiratory rate 12, blood pressure 117/59, saturating 96% on room air. DISCHARGE PHYSICAL EXAMINATION: HEENT: Oral cavity is moist. Lungs: Air entry bilaterally equal. No wheeze, rhonchi, crackles. Cardiovascular: S1, S2. Normal no murmur or gallop. Abdomen: Soft, nontender. Active bowel sounds. Extremity: No lower extremities edema. Neurologic: He was alert and oriented x3. DISCHARGE LABORATORY DATA: WBC 66174, hemoglobin 9.6, platelet 146,000. Sodium 138, potassium 4.2, BUN 24, creatinine 0.8. SIGNIFICANT MICROBIOLOGY DURING HOSPITAL ADMISSION: None. SIGNIFICANT IMAGING DONE DURING HOSPITAL ADMISSION: Abdomen and pelvis CT on 11/14/2019 had suggested a couple of new tiny pulmonary nodules in the right lung base measuring 5 mm or less. Heart size was normal. There were numerous large masses all throughout the liver which had dramatically increased in size and number. There was severe para-aortic retroperitoneal lymphadenopathy and trace pelvic free fluid. Urinary bladder, prostate and rectum are normal. No bowel obstruction. No free air. There are moderate degenerative changes of the spine. No acute suspicious bony lesion. Electrocardiogram on 11/14/2019 had sinus bradycardia, otherwise normal EKG. CONSULTATIONS DONE DURING HOSPITALIZATION: Oncology, Dr. Francois. HOSPITAL COURSE SUMMARY: Mr. Pan is 69-year-old man with history of metastatic pancreatic cancer who also has a history of epiglottitis, lymph node involvement, cancer, previously requiring radiation, who was recently diagnosed with metastatic pancreatic cancer, who came in to the hospital on 11/14/2019 with chief complaint of worsening weakness, poor oral intake, worsening abdominal pain and nausea. In the emergency room, he was found to have temperature of 98.9 degrees, pulse of 70, blood pressure 124/83, and oxygen saturation of 99% on room air. On lab evaluation, he was found to have hemoglobin of 11.6, WBC of 7000. He had mild hyponatremia with sodium of 132, chloride of 96. He also had elevated BUN with 25 though his creatinine of 0.8. Abdomen and pelvis CT was performed for worsening abdominal pain, which had worsening metastasis, so Hospitalist team is consulted for management for his failure to thrive and hyponatremia. The patient was admitted, and was started on intravenous fluid resuscitation as well as intravenous Clinimix. He was also started on aggressive bowel regimen and intravenous opioid pain medications. Oncology team was also consulted. With IV fluids, IV nutrition, patient's clinical condition improved. His oral intake had also improved. His hypoalbuminemia was improving so his IV pain medication was stopped and the patient seemed to be able to tolerate adequate oral intake. It was decided to discharge the patient and have outpatient oncology followup. DISCHARGE INSTRUCTIONS: At the time of discharge, detailed discharge instructions were provided to the patient. Prescriptions of bowel regimen as well as nicotine patches were provided and plan of care in detail discussed with the patient as well as his sister. All of the questions were answered. TIME SPENT: 25 minutes were spent in discharging this patient. cc: Nathanael Crwes MD
== END 2019-11-17 13:00 | disposition home or self-care (01) | DRG 641 ==
LOC: SUPCPDRO → ED 10:40 → 3N 15:24
PROVIDERS: ATTEND Internal Medicine

== ENCOUNTER 2019-12-03 12:37 | Inpatient (IN) ==
[2019-12-03] MEDS ORDERED: TORADOL IV ONE (14:36)
[2019-12-03] MEDS ORDERED: ZOFRAN IV ONE (14:36)
[2019-12-03] MEDS ORDERED: NS 1,000 ML IV ONE ×3 (14:36→20:20)
[2019-12-03 16:26] LABS: BASO# 0.01 X1000 (0.0-0.2); BASO% 0.2 % (0.0-0.8); EOS% 1.5 % (0.0-10.0); HEMOGLOBIN 10.3 g/dL (14.0-18.0); IMM GRAN# 0.07 X1000 (0.0-0.04); IMM GRAN% 1.1 % (0.0-0.5); LYMPH% 7.7 % (20.5-51.1); MCHC 33.2 g/dL (33-37); MCV 93.4 FL (81-99); MONO# 0.61 X1000 (0.11-0.59); MONO% 9.4 % (1.7-9.3); MPV 10.3 FL (7.4-10.4); NEUT# 5.21 X1000 (1.4-6.5); NEUT% 80.1 % (42.2-75.2); PLT 530 X1000 (130-400); RBC 3.32 XMIL (4.7-6.1); RDW 15.5 % (11.5-14.5)
[2019-12-03 16:58] LABS: AGAP 16; ALB/GLOB RATIO 1.7; ALBUMIN 3.7 g/dL (3.5-5.0); ALKALINE PHOSPHATASE 210 U/L (32-122); BUN 13 mg/dL (8-22); CALCIUM 9.1 mg/dL (8.8-10.2); CHLORIDE 101 mmol/L (98-107); COSMO 276; CREATININE 0.8 mg/dL (0.7-1.2); ESTIMATED GFR > 60; GLUCOSE 108 mg/dL (70-104); GOT 48 U/L (10-34); GPT 53 U/L (10-44); POTASSIUM 4.6 mmol/L (3.5-5.1); SODIUM 138 mmol/L (136-145); TCO2 21 mmol/L (25-35); TOTAL BILIRUBIN 0.58 mg/dL (0.20-1.00); TOTAL PROTEIN 5.9 g/dL (6.3-8.3)
[2019-12-03] MEDS ORDERED: NORCO-10 PO ONE (17:23)
[2019-12-03] MEDS ORDERED: LIORESAL PO ONE (17:24)
[2019-12-03] MEDS ORDERED: PHENERGAN IM ONE (18:03)
--- NOTE | 2019-12-03 18:55 | PROVIDER DOCUMENTATION ---
This chart was entered by Mague Angulo Scribe, acting as scribe for Jesus Schumacher MD. HPI-General Adult - General Chief Complaint: Weakness Stated Complaint: "DEHYDRATED" CANCER PT Time Seen by Provider: 12/03/19 12:59 Source: patient, family (sister) Allergies/Adverse Reactions: Patient Allergies Allergy/AdvReac Type Severity Reaction Status Date / Time No Known Allergies Allergy Verified 12/03/19 15:08 Home Medications: Home Medication List Medication Instructions Recorded Confirmed Last Taken Type Amlodipine Besylate 10 mg PO QHS 10/15/14 12/03/19 09/10/19 21:00 History Finasteride 5 mg PO DAILY 10/15/14 12/03/19 09/10/19 08:00 History Hydrocodone/APAP 10 mg/325 mg 1 each PO Q6H PRN PRN 10/15/14 12/03/19 12/03/19 History [[place]-10] Meloxicam 15 mg PO DAILY 10/15/14 12/03/19 09/10/19 08:00 History Atorvastatin Calcium 40 mg PO DAILY 10/07/19 12/03/19 Unknown History Levothyroxine [Synthroid] 100 microgm PO DAILY 10/07/19 12/03/19 Unknown History Allopurinol [Zyloprim] 300 mg PO DAILY 11/14/19 11/14/19 Unknown History Baclofen [Lioresal] 10 mg PO BID 11/14/19 11/14/19 Unknown History Dexamethasone 4 mg PO DIRECTED 11/14/19 11/14/19 Unknown History Fentanyl 1 ea TD Q72H 11/14/19 11/14/19 Unknown History Omeprazole 40 mg PO DAILY 11/14/19 11/14/19 Unknown History Ondansetron [Zofran] 8 mg PO Q6-8H PRN PRN 11/14/19 11/14/19 Unknown History Tamsulosin [Flomax] 0.4 mg PO DAILY 11/14/19 11/14/19 Unknown History Trazodone HCl 50 mg PO QHS 11/14/19 11/14/19 Unknown History Venlafaxine HCl [Venlafaxine HCl 75 mg PO DAILY 11/14/19 11/14/19 Unknown History ER] Bisacodyl [Dulcolax] 10 mg HI BID PRN #20 supp 11/17/19 Unknown Rx Nicotine Patch [Nicoderm Patch] 21 mg TD DAILY #21 patch.td24 11/17/19 Unknown Rx Polyethylene Glycol 3350 [Miralax] 17 gm PO DAILY #20 powder, packet 11/17/19 Unknown Rx - History of Present Illness -Gen Adult Nature of Presenting Problems: 69 yowm presents to the ed with c/o generalized weakness, fatigue, decreased appetite and nause. pt has pancreatic cancer with mets to liver. pt is ill appe aring and looks tired. pt had an appointment for chemo today but sts could not go to appointment due to sx Location of Pain/Injury: reports: generalized (weakness and fatigue) Quality of Pain: reports: aching (weakness) Severity: reports: moderate Onset/Duration: reports: gradual Timing: reports: still present, constant, getting worse Context/Activities at Onset: reports: light activity Associated Symptoms: reports: fatigue, loss of appetite, malaise, muscle aches, nausea, weakness. denies: back/neck pain, chest pain, fever/chills, shortness of breath, vomiting Similar Symptoms Previously?: Yes Recently seen or treated by another doctor?: Yes (oncology) Review of Systems - Adult - REVIEW OF SYSTEMS - ADULT Constitutional: reports: see HPI, fatique. denies: chills, fever Eyes: reports: no symptoms reported Ears, Nose, Mouth & Throat: reports: no symptoms reported Cardiovascular: denies: chest pain, palpitations Respiratory: denies: cough, shortness of breath, wheezing Gastrointestinal: reports: see HPI, nausea, poor appetite. denies: abdominal pain, diarrhea, vomiting Genitourinary: reports: no symptoms reported Musculoskeletal: reports: see HPI, muscle aches, muscle weakness. denies: back pain, neck pain Integumentary: reports: no symptoms reported Neurological: denies: dizziness/vertigo, headache/migraines Psychiatric: reports: no symptoms reported Endocrine: reports: no symptoms reported Hematologic/Lymphatic: reports: no symptoms reported Allergic/Immunologic: reports: no symptoms reported All Other Systems: Reviewed and Negative Past History - Adult - PAST MEDICAL HISTORY-ADULT Review of Records: reports: Nursing Assessment Review, Medications Reviewed, Social history reviewed & non-contributory. Major Childhood Illnesses: reports: denies history Cardiovascular: reports: CAD, HTN, hyperlipidemia Gastrointestinal: reports: cancer, GERD Genitourinary: reports: denies history Musculoskeletal: reports: arthritis, cancer (bone lesion), chronic pain Hand Dominance: Right Handed Neurological: reports: Seizures/Epilepsy Psychiatric: reports: denies history Endocrine/Immune: reports: denies history Other Conditions: reports: denies history - PRIOR SURGERIES/PROCEDURES Surgical/Procedure History: reports: appendectomy, cardiac stent, other (cataract, hydrocele) - IMMUNIZATION STATUS Childhood Immunizations: See Nurse Assessment Flu Vaccine: See Nurse Assessment - FAMILY HISTORY Family History: reviewed, not pertinent - SOCIAL HISTORY Smoking: denies Substance Use: denies Living Situation: family Physical Exam-General - PHYSICAL EXAM-ADULT Initial Vital Signs Reviewed: Yes - CONSTITUTIONAL General Appearance: alert, mild distress, thin. negative: appears well (ill appearaing) - EYES Eyes: PERRL/EOMI, pale conjunctivae - HEAD, EARS, NOSE, MOUTH & THROAT HENMT: negative: moist mucous membranes (dry oral) - NECK Neck: normal inspection - RESPIRATORY Respiratory: chest non-tender, lungs clear, normal breath sounds - CARDIOVASCULAR Cardiovascular: normal peripheral pulses, regular rate, rhythm - CHEST (BREASTS) Chest/Breast: deferred - GASTROINTESTINAL (ABDOMEN) Abdominal Exam: non tender, soft, other (c/o nausea) - GENITOURINARY Male Genitalia: deferred Rectal Exam: deferred Hemoccult Exam: deferred - MUSCULOSKELETAL Back Exam: no CVA tenderness, no vertebral tenderness Extremity: normal capillary refill, pelvis stable - SKIN Integumentary: warm/dry, pallor. negative: normal turgor (poor skin turgor) - NEUROLOGIC Neurologic: grossly normal - PSYCHIATRIC Psych/Mental Status: normal mood/affect, normal thought content, normal thought process, oriented x 3 Progress - PLAN OF CARE/RESULTS Progress/Plan/Lab Results: Vital Signs - 8 hr 12/03/19 12:43 Temperature 98.2 F Pulse Rate 79 Respiratory Rate 20 Blood Pressure 136/68 O2 Sat by Pulse Oximetry 99 Result Diagrams: 12/03/19 13:00 12/03/19 13:00 - REASSESSMENT Reassessment #1 Time Reassessed: 18:54 Status: worsening (MODERATE ABD APAIN AND FAILED TO RETAIN JELLO/FLUIDS) - CONSULTS/PCP/HOSPITALIST Notification #1 *Consult/PCP/Hospitalist*: DR LEOS FOR DR CORREA Time Discussed: 18:20 (ADMIT IF NECESSARY PAIN, WILL CONSULT) #2 Consult: DR DIEGO Time Discussed: 18:52 Consult Disposition: Admit (FOR PAIN CONTROL AND IV HYDRATION) Departure - Departure Date of Disposition Decision: 12/03/19 Time of Disposition Decision: 18:55 DIAGNOSIS: Uncontrolled pain, Liver cancer, primary, with metastasis from liver to other site Disposition: ADMITTED INPATIENT 09 Certified Medical Emergency: Emergent Condition: Fair Referrals and Follow-Ups: Damon Yanes [Primary Care Provider] - - Critical Care Note This patient required my direct & personal management of CC.: No Attestation - Physician/ AMARILYS Attestation Patient care was provided by Advanced Practice Provider:: No The physician spent face to face time with patient:: Yes Advanced Practice Provider documentation review:: Supervising physician onsite and consulted in the evaluation and care of this patient. The physician did have a face to face encounter with the patient. This chart was documented by the indicated scribe, (Mague Angulo Scribe) and accurately reflects the services I performed and decisions made by me, Servando najera,Jesus Guthrie MD, as attested by the provider's signature.
[2019-12-03] MEDS ORDERED: DILAUDID IV ONE (19:07)
[2019-12-03] MEDS ORDERED: NS 500 ML ONE (19:36)
[2019-12-03] MEDS: NORVASC PO SCH (21:00)
[2019-12-04] MEDS ORDERED: SODIUM CHLORIDE 0.9% INJ PRN (00:55)
[2019-12-04] MEDS: DILAUDID IV PRN ×4 (01:16→20:44)
[2019-12-04] MEDS ORDERED: DULCOLAX PR PRN (06:00)
[2019-12-04] MEDS ORDERED: DECADRON PO SCH (06:00)
[2019-12-04] MEDS: ZOFRAN IV PRN ×3 (06:47→20:43)
[2019-12-04] MEDS: SYNTHROID PO SCH (06:57)
[2019-12-04] MEDS ORDERED: PRILOSEC PO SCH (07:00)
--- NOTE | 2019-12-04 07:47 | HISTORY AND PHYSICAL ---
CHIEF COMPLAINT: Dehydrated and weakness. HISTORY OF PRESENT ILLNESS: This is a 69-year-old male with a history of pancreatic cancer with metastases to the liver. He complains of fatigue, decreased appetite, nausea and generalized weakness. He had chemo 2 weeks ago and was supposed to have chemotherapy today but could not go related to his symptoms. He has other past medical history such as COPD, coronary artery disease status post PCI, hyperlipidemia, BPH, anxiety. He previously used tobacco but he quit about a month and a half ago. At any rate, he came into the emergency room and was noted to exhibit signs of dehydration. He will be admitted for fluids and pain control. PAST MEDICAL HISTORY: See HPI. PREVIOUS SURGICAL HISTORY: Appendectomy, cardiac stent, hydrocele surgery, cataract surgery, left elbow and arm surgery, epiglottis and lymph node removal, left inguinal hernia repair. SOCIAL HISTORY: Stopped smoking a month and a half ago. Stopped drinking many years ago. Lives at home with family. No illicit drugs. FAMILY HISTORY: Mother and father both had heart disease. ALLERGIES: No known drug allergies. HOME MEDICATIONS: 1. Zyloprim 300 mg p.o. daily. 2. Baclofen 10 mg p.o. b.i.d. 3. Dulcolax 10 mg [place] b.i.d. 4. Dexamethasone 4 mg p.o. as directed. 5. Fentanyl patch every 72 hours, I am unsure how many mcg. 6. Nicotine patch 21 mg daily. 7. Zofran 8 mg q.6-8. 8. Flomax 0.4 mg p.o. daily. 9. Trazodone 50 mg p.o. at bedtime. 10.Venlafaxine 75 mg p.o. daily. 11.Meloxicam 15 mg p.o. daily. 12.Amlodipine 10 mg p.o. at bedtime. 13.Atorvastatin 40 mg p.o. daily. 14.Finasteride 5 mg p.o. daily. 15.[place] 10 q.6 p.r.n. 16.Levothyroxine 100 mcg p.o. daily. 17.Omeprazole 40 mg p.o. daily. 18.MiraLAX 17 grams p.o. daily. REVIEW OF SYSTEMS: A 14 point review of systems conducted with the patient. He does admit to nausea, abdominal pain, generalized weakness. All other systems reviewed and negative other than pertinent positives listed above in the HPI. PHYSICAL EXAMINATION: VITAL SIGNS: Temperature 97.9 degrees, pulse 98, respirations 18, blood pressure 172/88, oxygen saturation 99% on room air. HEENT: Head is atraumatic, normocephalic. Pupils equal, round and reactive to light. Extraocular eye movements intact. Sclerae are anicteric. Conjunctivae are mildly pale. Oral mucosa is dry. NECK: Supple. No JVD. No thyromegaly. Trachea is midline. No cervical lymphadenopathy. CARDIAC: S1, S2 appreciated. No murmurs, gallops, rubs. LUNGS: Clear to auscultation bilaterally. No rhonchi, wheezes, rubs. Symmetric rise and fall of respirations. ABDOMEN: Soft, nondistended. Diffusely tender. Greatest area of tenderness is right upper quadrant. No pulsatile mass or organomegaly. Bowel sounds decreased all 4 quadrants. EXTREMITIES: No cyanosis, clubbing or edema. 2+ pedal pulses. NEUROLOGICAL: Alert and oriented x3. Cranial nerves 2-12 grossly intact. LABORATORY DATA: WBC 6.50, hemoglobin 10.3, hematocrit 31.0, platelet count 530,000. Sodium 138, potassium 4.6, chloride 101, carbon dioxide 21, BUN 13, creatinine 0.8, glucose 108. ASSESSMENT AND PLAN: 1. Failure to thrive with worsening abdominal pain. 2. Pancreatic cancer with metastases to the liver. 3. Hypertension. 4. Coronary artery disease. 5. BPH. 6. Hyperlipidemia. PLAN: We will admit to the medical floor. Continue home medications. We will continue fluids. Give Dilaudid as needed for pain control. Consult Dr. Faustin. Clear liquids at this time. Further recommendations per patient's clinical course. Dictated by LATONYA Lowery for Nato Kennedy MD cc: LATONYA Lowery MD
[2019-12-04 08:17] LABS: AGAP 13; BUN 12 mg/dL (8-22); CALCIUM 8.5 mg/dL (8.8-10.2); CHLORIDE 104 mmol/L (98-107); COSMO 276; CREATININE 0.6 mg/dL (0.7-1.2); ESTIMATED GFR > 60; GLUCOSE 101 mg/dL (70-104); POTASSIUM 3.8 mmol/L (3.5-5.1); SODIUM 138 mmol/L (136-145); TCO2 21 mmol/L (25-35)
--- NOTE | 2019-12-04 08:51 | EKG Report ---
Test Performed on : 12/03/2019 7:54:00 PM Test Reason : ED. NO EKG ORDER FOR MUSE Blood Pressure : / mmHG Vent. Rate : 076 BPM Atrial Rate : 076 BPM P-R Int : 150 ms QRS Dur : 080 ms QT Int : 384 ms P-R-T Axes : 078 -20 062 degrees QTc Int : 432 ms Normal sinus rhythm. Normal ECG When compared with ECG of 14-NOV-2019 15:43, (Unconfirmed) No significant change was found Unconfirmed Result
[2019-12-04] MEDS: LIORESAL PO SCH ×2 (09:31→20:43)
[2019-12-04] MEDS: MIRALAX PO SCH (09:31)
[2019-12-04] MEDS: PROSCAR PO SCH (09:31)
[2019-12-04] MEDS: FLOMAX PO SCH (09:31)
[2019-12-04] MEDS: LIPITOR PO SCH (09:31)
[2019-12-04] MEDS: NICODERM PATCH TD SCH (09:31)
[2019-12-04] MEDS: ZYLOPRIM PO SCH (09:31)
[2019-12-04] MEDS: EFFEXOR XR PO SCH (09:31)
[2019-12-04] MEDS: PHENERGAN IV PRN (09:50)
--- NOTE | 2019-12-04 14:13 | HEMO/ONC CONSULTATION ---
DATE: 12/04/2019 FAMILY PHYSICIAN: Damon Costa MD. CHIEF COMPLAINT: Dehydration, weakness, anorexia, abdominal pain. HISTORY OF PRESENT ILLNESS: Mr. Pan is a 69-year-old male that is well known to us with a history of pancreatic cancer with metastatic disease to the liver. He complains of increased fatigue, decreased appetite, weight loss, nausea, and overall weakness and abdominal discomfort. He completed 1 cycle of gemcitabine and Abraxane but has failed to complete his cycle 2. He was seen in the office on the [address] Sabra Su. He presented to the emergency room with dehydration and poor pain control. He does have a history of tobacco but quit about 2 months ago. PAST MEDICAL HISTORY: He also has a past medical history of COPD, coronary artery disease with a stent, and hyperlipidemia, BPH, and anxiety. SURGICAL HISTORY: Appendectomy. SOCIAL HISTORY: The patient lives alone but has support from his sisters. He did stop smoking about 2 months ago and drinking many years ago. No illicit drugs. HOME MEDICATIONS: 1. Zyloprim 300 mg p.o. daily. 2. Baclofen 10 mg p.o. b.i.d. for hiccups. 3. Dulcolax 10 mg p.r.n. b.i.d. 4. Dexamethasone 4 mg p.o. as directed. 5. Fentanyl patch 50 mcg every 72 hours. 6. Nicotine patch 21 mg daily. 7. Zofran 8 mg every 6-8 hours p.r.n. for nausea. 8. Flomax 0.4 mg p.o. daily. 9. Trazodone 50 mg p.o. at bedtime. 10.Venlafaxine 75 mg p.o. daily. 11.Meloxicam 15 mg p.o. daily. 12.Amlodipine 10 mg at bedtime. 13.Atorvastatin 40 mg daily. 14.Finasteride 5 mg p.o. daily. 15.[place] 10 mg every 4-6 hours p.r.n. 16.Omeprazole 40 mg daily. 17. MiraLAX 17 g daily for constipation. 18.Levothyroxine 100 mcg p.o. daily. ALLERGIES: The patient has no known allergies. REVIEW OF SYSTEMS: A 14-point review of systems was conducted with the patient. He does report that he has nausea, abdominal pain, and generalized weakness. He also reports that he is unable to eat because he has no taste and he has no appetite. He did complete 1 cycle of gemcitabine and Abraxane. PHYSICAL EXAMINATION: General: The patient is alert, lying supine in the bed. He is awake. Vital signs: Temperature 98.2, heart rate 80, respiratory rate is 18, blood pressure is 138/72, O2 saturations are 99%. He has grade 1 alopecia. HEENT: Normocephalic, atraumatic. Mucous membranes are pale and dry. Sclerae anicteric. EOM intact. Neck: Supple. Lungs: Clear throughout. CV: Regular rate and rhythm without murmur, gallop, or rub. Abdomen: Tender, soft, nondistended, with palpable liver, hypoactive bowel sounds in all quadrants. No rebound, no guarding, but very tender to palpation. Extremities: Without clubbing, cyanosis, or edema. Dermatologic: No rashes, bruises, or lesions. Neurologic: The patient is alert and oriented. We discussed whether he wanted to continue with treatment and he is undecided. LABORATORY DATA: Hemoglobin is 10.3, hematocrit is 31.0, white count is 6.5, and his platelets are 530,000. His sodium is 138, potassium is 3.8, chloride 104, CO2 is 21, BUN is 12, creatinine 0.6, and his blood sugar is 101. His total bilirubin is 0.5, AST 48, ALT 53, and his alkaline phosphatase is 210. ASSESSMENT AND PLAN: 1. Pancreatic cancer with extensive liver metastasis from magnetic resonance imaging that was performed on September of 2019. The patient has received 1 cycle of Gemzar and Abraxane. He is unsure of whether he would like to proceed with further treatment. 2. Dehydration and failure to thrive. 3. Pain control. The patient does have fentanyl 50 mcg with [place] 10 q.4-6 hours p.r.n. for pain, which he states does hold his pain. I discussed at length with Mr. Pan the Abraxane and Gemzar could in fact give him several months and good quality of life if he continued with chemotherapy but there was not a cure for metastatic pancreatic cancer but he could have more quality time with his family. We will follow along with you and make recommendations pending patient's decisions. The above reflects the history, exam, and assessment and plan of Dr. Barkley, who is covering for Dr. Francois. Dictated by LATONYA Davis for Cameron Francois MD cc: Cameron Francois MD
[2019-12-04] MEDS: DECADRON PO SCH (18:17)
[2019-12-04] MEDS: DESYREL PO SCH (20:43)
[2019-12-04] MEDS: NORVASC PO SCH (20:48)
[2019-12-04] MEDS: DULCOLAX PR SCH (21:45)
--- NOTE | 2019-12-04 22:05 | PROGRESS NOTE ---
DATE: 12/04/2019 INTERVAL HISTORY: No acute events overnight. Hospice team was consulted. The patient's sister is at bedside. SUBJECTIVE: Mr. Pan is complaining of abdominal pain, predominantly right lower quadrant. I discussed with the nurse about starting him on IV fluids and IV pain medications. VITALS: Temperature of 98.9, pulse 84, respiratory rate 20, blood pressure 150/60, saturating 90% on room air. PHYSICAL EXAMINATION: General: In mild to moderate distress because of abdominal pain. HEENT: Oral cavity is moist. Lungs: Air entry bilaterally equal. No wheezing, rhonchi, crackles. Cardiovascular: S1, S2 normal. No gallop. Abdomen: Soft. Right lower quadrant tenderness. Active bowel sounds. Extremity: No lower extremity edema. Neurologic: He is alert. He has hearing impairment. LABS: No CBC or BMP today. ASSESSMENT AND PLAN: 1. Failure to thrive and weakness with acute on chronic abdominal pain due to hepatic metastasis and retroperitoneal lymphadenopathy due to metastatic pancreatic cancer. 2. Essential hypertension. 3. Insomnia. 4. Gout. 5. Hyperlipidemia. PLAN: 1. I will start the patient on IV fluids. 2. Continue oral [place] as well as intravenous hydromorphone as necessary for pain. Hospice team has been consulted. 3. Disposition. I will have a discussion with the Oncology team tomorrow about a possible home hospice plan according to the patient and his sister's wishes, but they are pretty much thinking about home hospice, and they are starting in fact making some arrangements. cc: Nathanael Crews MD
[2019-12-04] MEDS: NORCO-10 PO PRN (23:14)
[2019-12-05] MEDS: LR 1,000 ML IV SCH ×2 (06:12→22:45)
[2019-12-05] MEDS: SYNTHROID PO SCH (06:12)
[2019-12-05] MEDS: DILAUDID IV PRN ×3 (06:15→22:45)
[2019-12-05] MEDS: NORCO-10 PO PRN (08:50)
[2019-12-05] MEDS: DECADRON PO SCH ×2 (10:06→15:32)
[2019-12-05] MEDS: FLOMAX PO SCH (10:06)
[2019-12-05] MEDS: PROSCAR PO SCH (10:06)
[2019-12-05] MEDS: LIPITOR PO SCH (10:06)
[2019-12-05] MEDS: ZYLOPRIM PO SCH (10:06)
[2019-12-05] MEDS: EFFEXOR XR PO SCH (10:06)
[2019-12-05] MEDS: MIRALAX PO SCH ×2 (10:06→21:12)
[2019-12-05] MEDS: NICODERM PATCH TD SCH (10:06)
[2019-12-05] MEDS: LIORESAL PO SCH ×2 (10:07→21:12)
[2019-12-05] MEDS: DULCOLAX PR SCH ×2 (10:07→21:12)
[2019-12-05] MEDS ORDERED: LACTULOSE PO ONE (12:52)
[2019-12-05] MEDS ORDERED: MILK OF MAGNESIA PO ONE (14:07)
[2019-12-05] MEDS: ZOFRAN IV PRN (15:34)
--- NOTE | 2019-12-05 17:18 | PROGRESS NOTE ---
DATE: 12/05/2019 INTERVAL HISTORY: No acute events overnight. SUBJECTIVE: Mr. Pan is complaining of abdominal pain and constipation. His family is at bedside and requesting me to keep the patient here so that we can manage his constipation, which is bothering him. VITAL SIGNS: Temperature of 98.1 degrees, pulse 94, respiratory rate of 14, blood pressure 126/51. He is saturating 97% on room air. PHYSICAL EXAMINATION: General: Not in acute distress. HEENT: Oral cavity is moist. Lungs: Air entry bilaterally equal. No wheeze, rhonchi, crackles. Cardiovascular: S1, S2 normal. No murmur, gallop, or rub. Abdomen: Soft, nontender, except right upper quadrant. Active bowel sounds. Extremities: No lower extremity edema. Neurologic: He is alert and oriented x3. He has hearing impairment. LABS: No new labs. ASSESSMENT: 1. Failure to thrive and weakness with acute on chronic abdominal pain due to hepatic metastases and retroperitoneal lymphadenopathy due to metastatic pancreatic cancer. 2. Constipation. 3. Essential hypertension. 4. Insomnia. 5. Gout. 6. Hyperlipidemia. PLAN: I will keep patient on intravenous fluids. Start him on aggressive bowel regimen including MiraLAX, bisacodyl, lactulose, as well as give him milk of magnesium. I will continue most of his other home medications. Plan of care discussed with the patient. His questions have been answered. Hospice services has been consulted and plan is to go home on home hospice, likely on December 06, 2019 when the arrangements will be made at his home and he will hopefully have a bowel movement. The patient's family is at bedside. They are in agreement with the plan. cc: Nathanael Crews MD
[2019-12-05] MEDS: PHENERGAN IV PRN (18:34)
[2019-12-05] MEDS: DESYREL PO SCH (21:12)
[2019-12-05] MEDS: LACTULOSE PO SCH (21:12)
[2019-12-05] MEDS: NORVASC PO SCH (21:12)
[2019-12-06] MEDS: NORCO-10 PO PRN ×3 (02:37→14:54)
[2019-12-06] MEDS: SYNTHROID PO SCH (07:23)
[2019-12-06] MEDS: LIORESAL PO SCH (08:48)
[2019-12-06] MEDS: DECADRON PO SCH (08:48)
[2019-12-06] MEDS: PROSCAR PO SCH (08:48)
[2019-12-06] MEDS: DULCOLAX PR SCH ×2 (08:48→09:10)
[2019-12-06] MEDS: LACTULOSE PO SCH (08:48)
[2019-12-06] MEDS: ZYLOPRIM PO SCH (08:48)
[2019-12-06] MEDS: FLOMAX PO SCH (08:48)
[2019-12-06] MEDS: LIPITOR PO SCH (08:48)
[2019-12-06] MEDS: EFFEXOR XR PO SCH (08:48)
[2019-12-06] MEDS: NICODERM PATCH TD SCH (08:49)
[2019-12-06] MEDS: MIRALAX PO SCH (08:49)
[2019-12-06 11:37] VITALS: BP 121/47
[2019-12-06] MEDS: DILAUDID IV PRN (12:04)
--- NOTE | 2019-12-06 14:13 | DISCHARGE SUMMARY ---
ADMISSION DATE: 12/03/2019 DISCHARGE DATE: 12/06/2019 PRIMARY CARE PHYSICIAN: Damon Yanes MD. HISTORY OF PRESENT ILLNESS: He came in with dehydrated and weakness. A 69-year-old with history of pancreatic cancer with metastasis to the liver. Complains of fatigue, decreased appetite, nausea, generalized weakness. Had chemotherapy about 2 weeks prior to coming in, was supposed to have chemotherapy on the day of admission, but could not go related to his symptoms, dehydrated and weakness. He had other past medical history such as COPD, coronary artery disease status post PCI, hyperlipidemia, benign prostatic hypertrophy, anxiety, previously used tobacco but quit about a month and a half ago, was admitted to the hospital. PAST SURGICAL HISTORY: 1. Status post appendectomy. 2. Status post cardiac stent. 3. Hydrocele surgery. 4. Cataract surgery. 5. Left elbow and arm surgery. 6. Epiglottitis, left lymph node has been resected. 7. Left inguinal hernia repair. ADMISSION DIAGNOSES: 1. Failure to thrive. 2. Worsened abdominal pain. 3. Pancreatic cancer with metastatic liver disease. 4. Hypertension. 5. Coronary artery disease. 6. Benign prostatic hypertrophy. 7. Hyperlipidemia. HOSPITAL COURSE: Hematology Oncology, seen by Stacia Hdoge for Dr. Francois, pancreatic cancer, extensive liver metastasis from magnetic resumed resonance imaging that was performed in September 2019. Has received 1 cycle of Gemzar and Abraxane. He is unsure whether he wants to proceed. He had dehydration, was given some fluid. Pain control, they are using fentanyl 50 mcg patch and [place] 10 mg q.4 to 6 hours p.r.n. pain. The patient had decided he wanted to go home with hospice and that was his and his sister's wishes, so we set him up to go home with hospice and set up for his oxygen at home. MEDICATIONS: We will have him on his Zyloprim 300 mg a day, Norvasc 10 mg a day, Lipitor 40 mg a day. He can have baclofen 10 mg p.o. b.i.d., docusate suppository 10 mg per rectum b.i.d., Decadron 4 mg a day, and I think that is in the morning, he takes 2 mg at 15:00 or 3 o'clock, Proscar 5 mg a day, [place] 10 one q.6 hours, lactulose 30 mL b.i.d., Synthroid 100 mcg daily, nicotine patch 21 mg a day, MiraLAX 17 g p.o. b.i.d., trazodone 50 mg a day, Flomax 0.4 mg a day, and Effexor XR 75 mg daily. cc: Russ Mendoza MD
== END 2019-12-06 15:07 | disposition hospice, home (50) | DRG 641 ==
LOC: ED 12:37 → SUATTDRO 21:34 → 3N 21:34
PROVIDERS: ATTEND Emergency Medicine